=== PATIENT | female | born 1965 | race Caucasian/White ===

== ENCOUNTER 2020-05-22 08:08 | Emergency (ER) | payer SELFPAY ==
[2020-05-22 08:12] VITALS: BP 123/74; PULSE 70; RESP 16; TEMP 36.9; O2SAT 99
--- NOTE | 2020-05-22 08:13 | ED.GENADULT ---
HPI - General Adult General Chief complaint: Eye Problems Stated complaint: left eye red/swollen Time Seen by Provider: 05/22/20 08:20 Source: patient Mode of arrival: ambulatory Limitations: no limitations History of Present Illness HPI narrative: 54-year-old female patient presents to the [facility] with complaints of left eye pain that started yesterday. Patient states she is noticed a little lump to the lower lid of the left eye. Denies any vision changes. Denies any fevers. Denies any discharge coming from the eye. Patient states she has tried some warm compresses to the eye. Related Data Home Medications Medication Instructions Recorded Confirmed cyanocobalamin (vitamin B-12) mcg 05/22/20 [Vitamin B-12] Allergies Allergy/AdvReac Type Severity Reaction Status Date / Time orange Allergy Hives Verified 05/22/20 08:22 Review of Systems Review of Systems: Narrative: CONSTITUTIONAL: Denies fever, chills, or sweats. EYES: Denies visual changes, redness, or discharge. Positive redness to left lower lid since yesterday ENT: Denies rhinorrhea, congestion, sore throat, or otalgia. CARDIOVASCULAR: Denies chest pain, palpitations, or edema. RESPIRATORY: Denies cough or dyspnea. GASTROINTESTINAL: Denies abdominal pain, nausea, vomiting, or diarrhea. GENITOURINARY: Denies dysuria or hematuria. SKIN: Denies rash or itching. MUSCULOSKELETAL: Denies back pain, joint pain, or myalgia. NEUROLOGIC: Denies headache, numbness, or weakness. PSYCHIATRIC: Denies anxiety or depression. PMFSH Comments At the time of my signature I agree with nursing past medical history, surgical, social, and family history. There is no relevant family history pertinent to the presenting complaint. Exam Narrative: Exam Narrative: GENERAL: Well-appearing, well-nourished, and in no acute distress. HEAD: Normocephalic, atraumatic. EYES: PERRLA and EOM intact without limitation or complaint of pain, no periorbital soft tissue swelling. Erythema noted to the left lower lid. There is a little lump to the lower lid on palpation on the outside of the lid. No obvious styes noted on the internal lid. No warmth or tenderness noted, no obvious deformity. No crusting or swelling.no tearing or draining.No photophobia. No nystagmus No FB or lesion on lid eversion. Corneas grossly clear, no obvious FB or hyphens/hypopyon. No injection to sclera. Lids and lashes clear. ENT: Nares clear, no rhinorrhea or epistaxis. Mucous membranes moist. NECK: Supple. No lymphadenopathy CHEST: Clear to auscultation. No respiratory distress. HEART: Regular rate and rhythm. No murmur heard. Normal peripheral pulses. ABDOMEN: Soft, nontender, nondistended, normal active bowel sounds. EXTREMITIES: Normal range of motion. No edema. SKIN: Warm, dry, no rash. NEURO: No focal deficits. Alert and oriented x3. Course Vital Signs Vital signs: Vital Signs Temperature 36.9 C 05/22/20 08:12 Pulse Rate 70 05/22/20 08:12 Respiratory Rate 16 05/22/20 08:12 Blood Pressure 123/74 05/22/20 08:12 Pulse Oximetry 99 05/22/20 08:12 Temperature 36.9 C 05/22/20 08:12 Pulse Rate 70 05/22/20 08:12 Respiratory Rate 16 05/22/20 08:12 Blood Pressure 123/74 05/22/20 08:12 Pulse Oximetry 99 05/22/20 08:12 Vital signs reviewed. Medical Decision Making Differential Diagnosis Differential Diagnosis: Differential diagnosis: Conjunctivitis, foreign body, corneal ulcer, Keratitis, dendritic lesions, corneal abrasion, very orbital infection, orbital cellulitis, orbital pain, acute narrow angle glaucoma, detached retina, central retinal artery occlusion, complete hyphema, vitreous hemorrhage, optic neuritis, globe disruption Plan of care for patient is discharged home with eye antibiotic ointment. Discussed with her she can put the ointment on the lid area to decrease risk of infection and she needs to continue the warm compresses. Discussed with patient she can also
== END 2020-05-22 08:30 | disposition home or self-care (01) ==
PROVIDERS: Emergency Provider Nurse Practitioner Family; PCP Internal Medicine Infectious Disease
DX: H00.015 Hordeolum externum left lower eyelid (principal)
CPT/HCPCS: 99213; G0463

== ENCOUNTER 2024-04-20 14:08 | Emergency (ER) | payer OTHER, SELFPAY ==
[2024-04-20 14:22] VITALS: BP 124/87; PULSE 79; RESP 20; TEMP 36.7; O2SAT 95
--- NOTE | 2024-04-20 15:03 | ED.SKABFB ---
HPI - Skin/Abscess/Foreign Bdy General Chief complaint: Skin/Abscess/Foreign Body Stated complaint: Skin Problem/Right Leg Time Seen by Provider: 04/20/24 14:40 Source: patient, RN notes reviewed and old records reviewed Mode of arrival: ambulatory Limitations: no limitations History of Present Illness HPI narrative: 58-year-old female who presents to [facility] with complaints of rash to the anterior aspect of her right lower leg for the past 5 days. Patient has red rash to the anterior right lower leg with no raised skin area, no pustules or any weeping from area. Patient denies denies any exposure to any new soaps, lotions, foods, medications laundry products or any outside exposure to poison plants. Patient reports no fevers or any headaches, no other area of rash, denies any itching or acute pain to area. MD complaint: rash Onset (ago): day(s) (5) Location: RLE (anterior aspect right lower leg) Severity: moderate Treatments prior to arrival: none Related Data Allergies Allergy/AdvReac Type Severity Reaction Status Date / Time orange Allergy Hives Verified 05/22/20 08:22 Review of Systems Review of Systems: CONSTITUTIONAL: Denies fever, chills, or sweats. CARDIOVASCULAR: Denies chest pain, palpitations, or edema. RESPIRATORY: Denies cough or dyspnea. SKIN: Reports rash to the anterior aspect of right lower leg appears as red dots no pustule formation or any raised areas MUSCULOSKELETAL: Denies joint pain or myalgia. NEUROLOGIC: Denies headache, numbness, or weakness. All systems reviewed & are unremarkable except as noted in HPI and below PMFSH Social History Social History (Updated 04/21/24 @ 10:50 by Noemí Garcia NP) Smoking status: Unknown if ever smoked Alcohol intake: current Alcohol use details: rare social Substance use type: does not use Living arrangements: with family Gender identity (if verbalized by the patient): Female Comments At time of signature, agree with nursing past medical, surgical, social and family history. There is no relevant family history pertinent to the presenting complaint Exam Narrative: GENERAL: Well-appearing, well-nourished, and in no acute distress. HEAD: Normocephalic, atraumatic. EYES: PERRLA, conjunctivae clear, and EOMI. ENT: Mucous membranes moist. Oropharynx without edema, erythema or lesions. NECK: Supple. No lymphadenopathy CHEST: Clear to auscultation. No respiratory distress.SAO2 95% on room air HEART: Regular rate and rhythm. SKIN: Warm, dry.? Patches of erythema appear as red dots on skin measures 10cm X7 cm, with no edema to anterior aspect of right lower leg, no pustule formation no heat or any weeping, denies any acute pain to area or any itching NEURO:? Alert and oriented x3. PSYCH: Normal mood and affect Course Course Emergency Course: Patient is aware of diagnosis, understands and agrees to treatment plan.? Anticipatory guidance given.? Patient agrees to follow-up as directed and is aware of reasons to seek care at the emergency department. Portions of this record may have been created with voice recognition software Level of Care: Express Care Visit Vital Signs Vital signs: Vital Signs Temperature 36.7 C 04/20/24 14:22 Pulse Rate 79 04/20/24 14:22 Respiratory Rate 20 04/20/24 14:22 Blood Pressure 124/87 04/20/24 14:22 Pulse Oximetry 95 04/20/24 14:22 Oxygen Delivery Room Air 04/20/24 14:22 Temperature 36.7 C 04/20/24 14:22 Pulse Rate 79 04/20/24 14:22 Respiratory Rate 20 04/20/24 14:22 Blood Pressure 124/87 04/20/24 14:22 Pulse Oximetry 95 04/20/24 14:22 Oxygen Delivery Room Air 04/20/24 14:22 Reviewed MDM - Skin/Abscess/Foreign Bdy MDM Narrative Medical decision making narrative: Does not appear at this time to be erythema multiforme, bullous, SJS, TEN; no evidence at this time to suggest RMSF, endocarditis or Lyme disease; patient looks well, nontoxic
== END 2024-04-20 15:23 | disposition home or self-care (01) ==
PROVIDERS: Emergency Provider Registered Nurse; PCP Internal Medicine
DX: L25.9 Unspecified contact dermatitis, unspecified cause (principal)
CPT/HCPCS: 99203; G0463